=== PATIENT | male | born 1985 | race African-American/Black ===

== ENCOUNTER 2021-01-16 04:34 | Emergency (ER) | payer OTHER ==
[~2021-01-16] VITALS: Ht 170.2 cm; Wt 64.0 kg
[2021-01-16 04:36] VITALS: BP 150/98
[2021-01-16] MEDS ORDERED: IBUPROFEN 800MG TABLET PO ONE (05:00)
[2021-01-16] MEDS ORDERED: IBUP-2029 MT (05:36)
== END 2021-01-16 06:16 | disposition home or self-care (01) ==
LOC: ER 04:34
DX: S90.31XA Contusion of right foot, initial encounter (principal); S90.01XA Contusion of right ankle, initial encounter; W17.89XA Other fall from one level to another, initial encounter; Y93.89 Activity, other specified; Y92.89 Other specified places as the place of occurrence of the external cause; Y99.8 Other external cause status
CPT/HCPCS: 73610; 73630; 99284

== ENCOUNTER 2021-02-07 19:48 | Emergency (ER) | payer OTHER ==
[~2021-02-07 19:48] MED LIST: IBUP-2029 MT
[2021-02-08] MEDS ORDERED: BICT1TAB PO (13:43)
== END 2021-02-07 20:03 | disposition left against medical advice (07) ==
LOC: ER 19:48
DX: Z53.21 Procedure and treatment not carried out due to patient leaving prior to being seen by health care provider (principal)

== ENCOUNTER 2021-02-08 13:13 | Emergency (ER) | payer OTHER ==
[~2021-02-08] VITALS: Ht 180.3 cm; Wt 85.0 kg
[2021-02-08 13:40] VITALS: BP 116/86
[2021-02-08] MEDS ORDERED: BICT1TAB PO (13:43)
== END 2021-02-08 15:17 | disposition left against medical advice (07) ==
LOC: ER 13:35
DX: R51.9 Headache, unspecified (principal); Z53.21 Procedure and treatment not carried out due to patient leaving prior to being seen by health care provider

== ENCOUNTER 2022-11-26 07:10 | Emergency (ER) | payer MEDICAID, OTHER ==
[~2022-11-26] VITALS: Ht 182.9 cm; Wt 82.0 kg
[~2022-11-26 07:10] MED LIST changes: +BICT1TAB PO
[2022-11-26 07:12] VITALS: TEMP 98.5; O2SAT 98
[2022-11-26 09:00] VITALS: BP 143/92; PULSE 73; RESP 16
[2022-11-26] MEDS ORDERED: HYDROCODONE/ACETAMINOPHEN 5/325MG TABLET PO ONE (09:00)
[2022-11-26] MEDS ORDERED: ONDANSETRON 4MG ODT PO ONE (09:00)
[2022-11-26] MEDS ORDERED: IBUP-2029 MT (10:22)
== END 2022-11-26 10:50 | disposition home or self-care (01) ==
LOC: ER 07:10
DX: S49.92XA Unspecified injury of left shoulder and upper arm, initial encounter (principal); B20 Human immunodeficiency virus [HIV] disease; Y09 Assault by unspecified means; Y93.89 Activity, other specified; Y92.89 Other specified places as the place of occurrence of the external cause; Y99.8 Other external cause status
CPT/HCPCS: 99283; 73030; Q0162

== ENCOUNTER 2024-07-25 12:43 | Emergency (ER) | payer MEDICAID ==
[~2024-07-25] VITALS: Ht 182.9 cm; Wt 83.4 kg
[2024-07-25 12:47] VITALS: BP 131/89; TEMP 36.7; O2SAT 98
[2024-07-25 13:02] VITALS: PULSE 90; RESP 18; O2SAT 100
[2024-07-25] MEDS ORDERED: IBUPROFEN 400MG TABLET PO ONE (13:15)
[2024-07-25] MEDS ORDERED: HYDROCODONE/ACETAMINOPHEN 5/325MG TABLET PO ONE (13:30)
== END 2024-07-25 13:20 | disposition left against medical advice (07) ==
LOC: ER 12:43
DX: M25.561 Pain in right knee (principal); Z53.21 Procedure and treatment not carried out due to patient leaving prior to being seen by health care provider

== ENCOUNTER 2024-08-20 17:52 | Emergency (ER) | payer MEDICAID, OTHER ==
[~2024-08-20] VITALS: Ht 182.9 cm; Wt 77.0 kg
[2024-08-20 18:06] VITALS: O2SAT 98
[2024-08-20 18:13] VITALS: TEMP 36.7; O2SAT 98
[2024-08-20 19:44] VITALS: BP 144/101; PULSE 83; RESP 20
[2024-08-20] MEDS: IBUPROFEN 400MG TABLET PO ONE (19:44)
[2024-08-20] MEDS ORDERED: IBUP-2028 MT (20:51)
== END 2024-08-20 21:15 | disposition home or self-care (01) ==
LOC: ER 17:52
DX: M25.561 Pain in right knee (principal); M25.562 Pain in left knee; M25.511 Pain in right shoulder; Z79.899 Other long term (current) drug therapy; V89.9XXA Person injured in unspecified vehicle accident, initial encounter; Y93.55 Activity, bike riding; Y92.89 Other specified places as the place of occurrence of the external cause; Y99.8 Other external cause status
CPT/HCPCS: 73030; 73560; 93005; 99284

== ENCOUNTER 2024-10-01 04:19 | Emergency (ER) | payer MEDICAID ==
[~2024-10-01] VITALS: Ht 182.9 cm; Wt 77.0 kg
[~2024-10-01 04:19] MED LIST changes: +IBUP-2028 MT
[2024-10-01 04:23] VITALS: O2SAT 100
[2024-10-01 04:50] VITALS: BP 120/82; PULSE 85; RESP 16; TEMP 36.7; O2SAT 100
== END 2024-10-01 05:00 ==
LOC: ER 04:19
DX: S00.81XA Abrasion of other part of head, initial encounter (principal); X58.XXXA Exposure to other specified factors, initial encounter; Y93.89 Activity, other specified; Y92.89 Other specified places as the place of occurrence of the external cause; Y99.8 Other external cause status; Z79.899 Other long term (current) drug therapy
CPT/HCPCS: 99283